=== PATIENT | female | born 1935 | race Caucasian/White ===

== ENCOUNTER 2017-03-03 19:57 | Observation (INO) | payer OTHER ==
[~2017-03-03] VITALS: Ht 162.6 cm; Wt 72.7 kg
[~2017-03-03 19:57] MED LIST: ALEVE220 M2 PO; ANTI-DEPRESSANT PO; ASPIRIN81 M2 PO; BUSPAR10 MG PO; BUSPAR5 MG PO; CLONIDINE HCL0.1 MG PO; DURAGESIC25 MCG TD; EFFEXOR XR37.5 MG PO; EFFEXOR75 MG PO; LEXAPRO10 MG PO; LIDOCAINE700 MG TD; LYRICA50 MG PO; METOPROLOL TART25 MG PO; MOBIC7.5 MG PO; MOTRIN600 MG PO; NABUMETONE500 MG PO; OMEPRAZOLE40 M1 PO; OXYCODONE5 MG PO; PERCOCET 5/31 TABLET PO; PRESERVISION T1 EACH PO; PROAIR HFA8.5 GM IH; SPIRIVA RESPIMAT4 GM IH; THEO-DUR,THEOC200 MG PO; TRAMADOL HCL50 MG PO; TRAZODONE HCL100 MG PO; TRAZODONE HCL300 MG PO; TYLENOL REGULA325 MG PO; VALIUM5 MG PO; VITAMIN A A1 CAPSULE PO
[2017-03-03] MEDS ORDERED: CLONAZEPAM0.5 MG PO (22:49)
[2017-03-03] MEDS ORDERED: TRAZODONE HCL50 MG PO (22:49)
[2017-03-03] MEDS ORDERED: ADVAIR 250/501 DISK IH (22:50)
[2017-03-03] MEDS ORDERED: NEURONTIN100 MG PO (22:50)
[2017-03-03 23:16] LABS: EOSINOPHIL (%) 2.5 % (0-5); EOSINOPHIL COUNT 0.3 K/uL (0-0.3); HEMATOCRIT 31.9 % (36.0-46.0); IMMATURE GRANULOCYTE (%) 1.3 % (0.0-0.7); IMMATURE GRANULOCYTE COUNT 0.1 K/uL; INSTRUMENT ABS NEUTROPHIL CT 7.3 K/uL; LYMPHOCYTE COUNT 1.8 K/uL (1.0-2.8); MCH 26.1 PG (29.0-34.0); MCHC 31.3 G/DL (30.0-36.0); MCV 83.3 FL (83-99); MEAN PLAT.VOLUME 9.1 uM^3 (9.5-12.4); MONOCYTE (%) 11.6 % (3-12); MONOCYTE COUNT 1.3 K/uL (0-0.8); NEUTROPHIL (%) 67.7 % (45-76); NEUTROPHIL COUNT 7.3 K/uL (1.8-6.4); PLATELET COUNT 317 K/uL (156-360); RBC DIS.WIDTH-CV 17.2 % (11.8-14.6); RED BLOOD COUNT 3.83 M/uL (3.80-5.20); WHITE BLOOD COUNT 10.8 K/uL (4.1-10.2)
[2017-03-03 23:25] LABS: CHLORIDE 107 mEq/L (99-109); SODIUM 143 mEq/L (136-147)
[2017-03-03 23:26] LABS: GLUCOSE 99 mg/dL (70-99)
[2017-03-03 23:28] LABS: ANION GAP 13 MEQ/L (2-14)
[2017-03-03 23:31] LABS: GFR ESTIMATE (CALCULATED) > 59 mL/min/; UREA NITROGEN (BUN) 16 mg/dL (9-23)
[2017-03-04 00:04] LABS: TROP-I INTERPRETATION NEGATIVE; TROPONIN-I < 0.01 ng/mL (0.0-0.30)
[2017-03-04 01:03] VITALS: BP 180/89
[2017-03-04 05:36] LABS: EOSINOPHIL (%) 2.2 % (0-5); EOSINOPHIL COUNT 0.3 K/uL (0-0.3); HEMATOCRIT 31.1 % (36.0-46.0); IMMATURE GRANULOCYTE (%) 1.1 % (0.0-0.7); IMMATURE GRANULOCYTE COUNT 0.1 K/uL; INSTRUMENT ABS NEUTROPHIL CT 9.4 K/uL; MCH 26.6 PG (29.0-34.0); MCHC 31.5 G/DL (30.0-36.0); MCV 84.5 FL (83-99); MEAN PLAT.VOLUME 9.6 uM^3 (9.5-12.4); MONOCYTE (%) 9.4 % (3-12); MONOCYTE COUNT 1.2 K/uL (0-0.8); NEUTROPHIL (%) 72.1 % (45-76); NEUTROPHIL COUNT 9.4 K/uL (1.8-6.4); PLATELET COUNT 331 K/uL (156-360); RBC DIS.WIDTH-CV 17.4 % (11.8-14.6); RBC DIS.WIDTH-SD 53.8 % (39-53); RED BLOOD COUNT 3.68 M/uL (3.80-5.20); WHITE BLOOD COUNT 13.1 K/uL (4.1-10.2)
[2017-03-04 05:54] VITALS: BP 151/67
[2017-03-04 06:05] LABS: ALKALINE PHOSPHATASE 70 IU/L (3-129); ANION GAP 10 MEQ/L (2-14); CHLORIDE 106 MEQ/L (99-109); DIRECT BILIRUBIN 0.1 mg/dL (0.0-0.3); GFR ESTIMATE (CALCULATED) > 59 mL/min/; GLUCOSE 101 mg/dL (70-99); POTASSIUM 3.8 MEQ/L (3.7-5.4); SAMPLE HEMOLYSIS CHECK 0; SAMPLE ICTERIC CHECK 0; SAMPLE LIPEMIA CHECK 0; SODIUM 142 MEQ/L (136-147); TOTAL BILIRUBIN 0.4 MG/DL (0.0-1.0); UREA NITROGEN (BUN) 18 mg/dL (9-23)
[2017-03-04 06:14] LABS: ADD MIUA? YES; BILIRUBIN NEGATIVE; BLOOD NEGATIVE; COLOR YELLOW ((YELLOW)); GLUCOSE (STRIP) NEGATIVE; KETONES NEGATIVE; LEUKOCYTES NEGATIVE; NITRITE NEGATIVE; PROTEIN (STRIP) NEGATIVE; SPECIFIC GRAVITY 1.016 (1.000-1.030); UROBILINOGEN 0.2 MG/DL (0.2-1.0)
[2017-03-04 06:40] LABS: BACTERIA RARE /HPF; EPITHELIAL CELLS 1+ /HPF; MUCUS TRACE /LPF; RED BLOOD CELLS 20-30 /HPF (0-5)
[2017-03-04 07:20] LABS: IRON 22 MCG/DL (35-150); THEOPHYLLINE 17.5 MCG/ML (10-20)
[2017-03-04 07:27] VITALS: BP 138/61
[2017-03-04 11:37] VITALS: BP 141/72
[2017-03-04 15:00] VITALS: BP 170/75
== END 2017-03-04 16:51 | disposition home health service (06) ==
LOC: EME 19:57 → 5WEST 22:38 → EDOF 22:38 → 5WEST 03-04 00:49
PROVIDERS: Hospitalist
PROC: 0HQ0XZZ Repair Scalp Skin, External Approach (ICD-10-PCS; principal; 2017-03-03)
DX: S01.01XA Laceration without foreign body of scalp, initial encounter (principal); S06.9X9A Unspecified intracranial injury with loss of consciousness of unspecified duration, initial encounter; W18.30XA Fall on same level, unspecified, initial encounter; Y92.000 Kitchen of unspecified non-institutional (private) residence as the place of occurrence of the external cause; R42 Dizziness and giddiness; F32.9 Major depressive disorder, single episode, unspecified; I10 Essential (primary) hypertension; K21.9 Gastro-esophageal reflux disease without esophagitis; Z79.82 Long term (current) use of aspirin; Z87.891 Personal history of nicotine dependence; F41.9 Anxiety disorder, unspecified; E78.5 Hyperlipidemia, unspecified; J44.9 Chronic obstructive pulmonary disease, unspecified; E66.9 Obesity, unspecified
CPT/HCPCS: 70450; 72125; 80048; 80076; 80198; 81003; 82272; 82607; 83540; 84443; 84466; 84484; 85025; 93005; 94640; 99202; 99281; 99284; G0378; G8987 GO CI; G8988 GO CH; G8989 GO CI; J2270; J7030

== ENCOUNTER 2017-04-30 10:10 | Emergency (ER) | payer OTHER ==
[~2017-04-30] VITALS: Ht 165.1 cm; Wt 72.2 kg
[~2017-04-30 10:10] MED LIST changes: +ADVAIR 250/501 DISK IH; +CLONAZEPAM0.5 MG PO; +NEURONTIN100 MG PO; +TRAZODONE HCL50 MG PO
[2017-04-30 13:32] VITALS: BP 155/72
== END 2017-04-30 13:32 | disposition home or self-care (01) ==
LOC: EME 10:10
PROC: 0HQGXZZ Repair Left Hand Skin, External Approach (ICD-10-PCS; principal; 2017-04-30)
DX: S61.217A Laceration without foreign body of left little finger without damage to nail, initial encounter (principal); W26.0XXA Contact with knife, initial encounter
CPT/HCPCS: 99281; 99283

== ENCOUNTER 2017-11-03 09:06 | Emergency (ER) | payer OTHER ==
[~2017-11-03] VITALS: Ht 165.1 cm; Wt 72.8 kg
[2017-11-03 09:42] LABS: BASOPHIL (%) 0.8 % (0-1); BASOPHIL COUNT 0.1 K/uL (0-0.1); EOSINOPHIL (%) 1.5 % (0-5); EOSINOPHIL COUNT 0.2 K/uL (0-0.3); HEMATOCRIT 42.9 % (36.0-46.0); HEMOGLOBIN 14.3 G/DL (11.9-15.5); IMMATURE GRANULOCYTE (%) 1.9 % (0.0-0.7); LYMPHOCYTE COUNT 1.5 K/uL (1.0-2.8); MCH 30.2 PG (29.0-34.0); MCHC 33.3 G/DL (30.0-36.0); MCV 90.5 FL (83-99); MONOCYTE (%) 9.4 % (3-12); MONOCYTE COUNT 1.1 K/uL (0-0.8); NEUTROPHIL (%) 73.4 % (45-76); NEUTROPHIL COUNT 8.3 K/uL (1.8-6.4); PLATELET COUNT 338 K/uL (156-360); RBC DIS.WIDTH-CV 17.2 % (11.8-14.6); RED BLOOD COUNT 4.74 M/uL (3.80-5.20); WHITE BLOOD COUNT 11.3 K/uL (4.1-10.2)
[2017-11-03 09:49] LABS: ALBUMIN 4.5 g/dL (3.2-4.8)
[2017-11-03 09:50] LABS: CHLORIDE 103 mEq/L (99-109); POTASSIUM 4.4 mEq/L (3.7-5.4); SODIUM 140 mEq/L (136-147)
[2017-11-03 09:52] LABS: GLUCOSE 112 mg/dL (70-99); TOTAL PROTEIN 7.6 g/dL (6.4-8.3)
[2017-11-03 09:54] LABS: TOTAL BILIRUBIN 0.6 mg/dL (0.0-1.0)
[2017-11-03 09:55] LABS: ALKALINE PHOSPHATASE 89 IU/L (3-129)
[2017-11-03 09:56] LABS: CREATININE 0.9 mg/dL (0.6-1.3); GFR ESTIMATE (CALCULATED) > 59 mL/min/
[2017-11-03 09:57] LABS: AST (GOT) 17 IU/L (2-34); UREA NITROGEN (BUN) 26 mg/dL (9-23)
[2017-11-03 09:58] LABS: ALT (GPT) 15 IU/L (3-49)
[2017-11-03 09:59] LABS: LIPASE 17 U/L (1.0-51.0)
[2017-11-03 12:28] LABS: APPEARANCE SL.HAZY ((CLEAR)); BILIRUBIN NEGATIVE; BLOOD NEGATIVE; COLOR YELLOW ((YELLOW)); GLUCOSE (STRIP) NEGATIVE; KETONES NEGATIVE; LEUKOCYTES NEGATIVE; NITRITE NEGATIVE; PROTEIN (STRIP) 30; SPECIFIC GRAVITY 1.021 (1.000-1.030); UROBILINOGEN 0.2 MG/DL (0.2-1.0)
[2017-11-03 12:34] LABS: BACTERIA RARE /HPF; EPITHELIAL CELLS 1+ /HPF; MUCUS TRACE /LPF; RED BLOOD CELLS 0-5 /HPF (0-5); WHITE BLOOD CELLS 0-5 /HPF (0-5)
[2017-11-03] MEDS ORDERED: BENTYL20 MG PO (14:22)
[2017-11-03] MEDS ORDERED: ZOFRAN4 MG PO (14:22)
[2017-11-03 14:49] VITALS: BP 149/97
== END 2017-11-03 14:55 | disposition home or self-care (01) ==
LOC: EME 09:06
PROVIDERS: Emergency Medicine
DX: R10.11 Right upper quadrant pain (principal); K57.30 Diverticulosis of large intestine without perforation or abscess without bleeding; Z87.442 Personal history of urinary calculi; I10 Essential (primary) hypertension; J45.909 Unspecified asthma, uncomplicated
CPT/HCPCS: 71045; 74177; 76705; 80053; 81003; 83690; 85025; 93005; 99281; 99285; J1885; J2270; J2405; J7030

== ENCOUNTER 2017-11-13 15:55 | Inpatient (IN) | payer OTHER ==
[~2017-11-13] VITALS: Ht 157.5 cm; Wt 74.6 kg
[~2017-11-13 15:55] MED LIST changes: +BENTYL20 MG PO; +CLONAZEPAM0.125 MG PO; -CLONAZEPAM0.5 MG PO; -VITAMIN A A1 CAPSULE PO; +VITAMIN A PO; +ZOFRAN4 MG PO; +[UNRECOGNIZED DRUG - OTHER] PO
[2017-11-13 18:06] LABS: HEMATOCRIT 40.7 % (36.0-46.0); HEMOGLOBIN 13.4 G/DL (11.9-15.5); MCH 30.4 PG (29.0-34.0); MCHC 32.9 G/DL (30.0-36.0); MCV 92.3 FL (83-99); PLATELET COUNT 301 K/uL (156-360); RBC DIS.WIDTH-CV 17.5 % (11.8-14.6); RBC DIS.WIDTH-SD 59.8 % (39-53); RED BLOOD COUNT 4.41 M/uL (3.80-5.20); WHITE BLOOD COUNT 13.7 K/uL (4.1-10.2)
[2017-11-13 18:19] LABS: ALBUMIN 4.4 g/dL (3.2-4.8); CHLORIDE 104 mEq/L (99-109); POTASSIUM 3.7 mEq/L (3.7-5.4); SODIUM 140 mEq/L (136-147)
[2017-11-13 18:22] LABS: GLUCOSE 89 mg/dL (70-99); TOTAL PROTEIN 7.1 g/dL (6.4-8.3)
[2017-11-13 18:23] LABS: TOTAL BILIRUBIN 0.3 mg/dL (0.0-1.0)
[2017-11-13 18:25] LABS: ALKALINE PHOSPHATASE 74 IU/L (3-129); CREATININE 0.8 mg/dL (0.6-1.3); GFR ESTIMATE (CALCULATED) > 59 mL/min/
[2017-11-13 18:26] LABS: UREA NITROGEN (BUN) 18 mg/dL (9-23)
[2017-11-13 18:27] LABS: AST (GOT) 16 IU/L (2-34)
[2017-11-13 18:28] LABS: ALT (GPT) 13 IU/L (3-49)
[2017-11-13 18:29] LABS: APPEARANCE CLEAR ((CLEAR)); BILIRUBIN NEGATIVE; BLOOD NEGATIVE; COLOR YELLOW ((YELLOW)); GLUCOSE (STRIP) NEGATIVE; KETONES 5; LEUKOCYTES NEGATIVE; NITRITE NEGATIVE; PROTEIN (STRIP) NEGATIVE; SPECIFIC GRAVITY 1.013 (1.000-1.030); UCUL ADDED? NO; UROBILINOGEN 0.2 MG/DL (0.2-1.0)
[2017-11-13 18:29] LABS: LIPASE 16 U/L (1.0-51.0)
[2017-11-13 18:32] LABS: INTER. NORMALIZED RATIO 1.1
[2017-11-13] MEDS ORDERED: ZYPREXA2.5 MG PO (19:03)
[2017-11-13] MEDS ORDERED: AMBIEN5 MG PO (19:03)
[2017-11-14] VITALS: BP 131/61
[2017-11-14 03:59] VITALS: BP 152/63
[2017-11-14 07:20] VITALS: BP 155/67
[2017-11-14 12:32] VITALS: BP 135/63
[2017-11-14 15:00] VITALS: BP 160/74
[2017-11-14 19:18] VITALS: BP 149/66
[2017-11-15 00:01] VITALS: BP 114/56
[2017-11-15 04:43] VITALS: BP 115/57
[2017-11-15 07:21] LABS: HEMATOCRIT 36.7 % (36.0-46.0); HEMOGLOBIN 11.8 G/DL (11.9-15.5); MCH 30.4 PG (29.0-34.0); MCHC 32.2 G/DL (30.0-36.0); MCV 94.6 FL (83-99); PLATELET COUNT 255 K/uL (156-360); RBC DIS.WIDTH-CV 17.7 % (11.8-14.6); RBC DIS.WIDTH-SD 61.4 % (39-53); RED BLOOD COUNT 3.88 M/uL (3.80-5.20); WHITE BLOOD COUNT 11.9 K/uL (4.1-10.2)
[2017-11-15 07:35] LABS: ALBUMIN 3.5 G/DL (3.2-4.8); ALKALINE PHOSPHATASE 49 IU/L (3-129); ALT (GPT) 11 IU/L (3-49); AST (GOT) 15 IU/L (2-34); CHLORIDE 108 MEQ/L (99-109); CREATININE 0.8 MG/DL (0.6-1.3); GFR ESTIMATE (CALCULATED) > 59 mL/min/; MAGNESIUM 2.4 mg/dl (1.3-2.7); PHOSPHORUS 2.7 mg/dL (2.5-4.9); POTASSIUM 4.3 MEQ/L (3.7-5.4); SODIUM 141 MEQ/L (136-147); TOTAL BILIRUBIN 0.3 MG/DL (0.0-1.0); TOTAL PROTEIN 5.4 G/DL (6.4-8.3); UREA NITROGEN (BUN) 9 mg/dL (9-23)
[2017-11-15 07:43] LABS: GLUCOSE 117 mg/dL (70-99)
[2017-11-15 07:50] VITALS: BP 130/58
[2017-11-15 11:43] VITALS: BP 154/69
[2017-11-15 15:00] VITALS: BP 131/60
[2017-11-15 23:28] VITALS: BP 146/70
[2017-11-16 13:52] VITALS: BP 154/67
[2017-11-16 16:15] VITALS: BP 156/98
[2017-11-16 20:03] VITALS: BP 158/72
[2017-11-16 23:38] VITALS: BP 144/68
[2017-11-17 03:49] VITALS: BP 143/61
[2017-11-17 06:06] LABS: HEMATOCRIT 35.9 % (36.0-46.0); HEMOGLOBIN 11.8 G/DL (11.9-15.5); MCHC 32.9 G/DL (30.0-36.0); MCV 91.3 FL (83-99); PLATELET COUNT 274 K/uL (156-360); RBC DIS.WIDTH-CV 17.1 % (11.8-14.6); RBC DIS.WIDTH-SD 57.2 % (39-53); RED BLOOD COUNT 3.93 M/uL (3.80-5.20); WHITE BLOOD COUNT 9.9 K/uL (4.1-10.2)
[2017-11-17 06:26] LABS: CHLORIDE 106 MEQ/L (99-109); CREATININE 0.7 MG/DL (0.6-1.3); GFR ESTIMATE (CALCULATED) > 59 mL/min/; GLUCOSE 97 mg/dL (70-99); MAGNESIUM 2.3 mg/dl (1.3-2.7); PHOSPHORUS 3.2 mg/dL (2.5-4.9); SODIUM 141 MEQ/L (136-147); UREA NITROGEN (BUN) 7 mg/dL (9-23)
[2017-11-17 07:49] VITALS: BP 131/60
[2017-11-17 11:33] VITALS: BP 159/67
[2017-11-17 17:53] VITALS: BP 166/72
[2017-11-17 19:27] VITALS: BP 150/80
[2017-11-17 23:26] VITALS: BP 152/65
[2017-11-18 03:45] VITALS: BP 119/58
[2017-11-18 08:37] VITALS: BP 148/73
[2017-11-18 08:49] LABS: HEMATOCRIT 37.4 % (36.0-46.0); HEMOGLOBIN 12.4 G/DL (11.9-15.5); MCH 30.5 PG (29.0-34.0); MCHC 33.2 G/DL (30.0-36.0); MCV 92.1 FL (83-99); PLATELET COUNT 313 K/uL (156-360); RBC DIS.WIDTH-CV 17.2 % (11.8-14.6); RED BLOOD COUNT 4.06 M/uL (3.80-5.20); WHITE BLOOD COUNT 19.3 K/uL (4.1-10.2)
[2017-11-18 09:21] LABS: ALBUMIN 4.2 G/DL (3.2-4.8); ALKALINE PHOSPHATASE 59 IU/L (3-129); CHLORIDE 103 MEQ/L (99-109); CREATININE 0.8 MG/DL (0.6-1.3); GFR ESTIMATE (CALCULATED) > 59 mL/min/; GLUCOSE 121 mg/dL (70-99); POTASSIUM 4.4 MEQ/L (3.7-5.4); SODIUM 138 MEQ/L (136-147); UREA NITROGEN (BUN) 8 mg/dL (9-23)
[2017-11-18 09:28] LABS: ALT (GPT) 85 IU/L (3-49); AST (GOT) 108 IU/L (2-34); TOTAL BILIRUBIN 0.4 MG/DL (0.0-1.0); TOTAL PROTEIN 6.7 G/DL (6.4-8.3)
[2017-11-18 11:37] VITALS: BP 171/77
[2017-11-18 16:17] VITALS: BP 136/69
[2017-11-18 19:40] VITALS: BP 158/70
[2017-11-18 22:45] VITALS: BP 153/67
[2017-11-19 04:02] VITALS: BP 163/72
[2017-11-19 07:45] VITALS: BP 157/72
[2017-11-19 11:33] VITALS: BP 193/85
[2017-11-19 19:30] VITALS: BP 143/79
[2017-11-19 23:25] VITALS: BP 101/52
[2017-11-20 03:20] VITALS: BP 149/67
[2017-11-20 06:34] LABS: HEMOGLOBIN 11.4 G/DL (11.9-15.5); MCH 30.1 PG (29.0-34.0); MCHC 32.6 G/DL (30.0-36.0); MCV 92.3 FL (83-99); PLATELET COUNT 279 K/uL (156-360); RBC DIS.WIDTH-CV 17.2 % (11.8-14.6); RBC DIS.WIDTH-SD 58.7 % (39-53); RED BLOOD COUNT 3.79 M/uL (3.80-5.20)
[2017-11-20 07:07] LABS: ALBUMIN 3.7 G/DL (3.2-4.8); ALKALINE PHOSPHATASE 62 IU/L (3-129); ALT (GPT) 72 IU/L (3-49); CHLORIDE 101 MEQ/L (99-109); CREATININE 0.7 MG/DL (0.6-1.3); GFR ESTIMATE (CALCULATED) > 59 mL/min/; GLUCOSE 132 mg/dL (70-99); PHOSPHORUS 2.9 mg/dL (2.5-4.9); POTASSIUM 4.3 MEQ/L (3.7-5.4); SODIUM 136 MEQ/L (136-147); TOTAL PROTEIN 5.9 G/DL (6.4-8.3); UREA NITROGEN (BUN) 7 mg/dL (9-23)
[2017-11-20 07:09] LABS: AST (GOT) 49 IU/L (2-34); TOTAL BILIRUBIN 0.5 MG/DL (0.0-1.0)
[2017-11-20 07:11] VITALS: BP 183/84
[2017-11-20 11:25] VITALS: BP 140/65
[2017-11-20 15:50] VITALS: BP 124/57
[2017-11-20 20:00] VITALS: BP 154/54
[2017-11-21] VITALS (7 sets, daily range): BP systolic 123–184; BP diastolic 60–82
[2017-11-21 06:53] LABS: HEMATOCRIT 34.5 % (36.0-46.0); HEMOGLOBIN 11.2 G/DL (11.9-15.5); MCH 30.4 PG (29.0-34.0); MCHC 32.5 G/DL (30.0-36.0); MCV 93.8 FL (83-99); PLATELET COUNT 295 K/uL (156-360); RBC DIS.WIDTH-CV 17.3 % (11.8-14.6); RBC DIS.WIDTH-SD 59.5 % (39-53); RED BLOOD COUNT 3.68 M/uL (3.80-5.20); WHITE BLOOD COUNT 13.6 K/uL (4.1-10.2)
[2017-11-21 07:29] LABS: ALBUMIN 3.2 G/DL (3.2-4.8); ALKALINE PHOSPHATASE 53 IU/L (3-129); ALT (GPT) 56 IU/L (3-49); AST (GOT) 40 IU/L (2-34); CHLORIDE 104 MEQ/L (99-109); CREATININE 0.8 MG/DL (0.6-1.3); GFR ESTIMATE (CALCULATED) > 59 mL/min/; POTASSIUM 4.3 MEQ/L (3.7-5.4); SODIUM 140 MEQ/L (136-147); TOTAL BILIRUBIN 0.5 MG/DL (0.0-1.0); TOTAL PROTEIN 5.3 G/DL (6.4-8.3); UREA NITROGEN (BUN) 10 mg/dL (9-23)
[2017-11-21 07:42] LABS: GLUCOSE 95 mg/dL (70-99)
[2017-11-21 09:31] LABS: THYROTROPIN (TSH) 3.6 MIU/L (0.4-5.5)
[2017-11-22 03:27] VITALS: BP 139/80
[2017-11-22 06:16] LABS: HEMATOCRIT 34.5 % (36.0-46.0); HEMOGLOBIN 11.3 G/DL (11.9-15.5); MCH 30.2 PG (29.0-34.0); MCHC 32.8 G/DL (30.0-36.0); MCV 92.2 FL (83-99); NRBC (%) 0.2 /100 WBC (0-0); PLATELET COUNT 312 K/uL (156-360); RBC DIS.WIDTH-CV 17.2 % (11.8-14.6); RBC DIS.WIDTH-SD 57.5 % (39-53); RED BLOOD COUNT 3.74 M/uL (3.80-5.20); WHITE BLOOD COUNT 10.7 K/uL (4.1-10.2)
[2017-11-22 06:38] LABS: CHLORIDE 106 MEQ/L (99-109); CREATININE 0.7 MG/DL (0.6-1.3); GFR ESTIMATE (CALCULATED) > 59 mL/min/; GLUCOSE 102 mg/dL (70-99); POTASSIUM 4.4 MEQ/L (3.7-5.4); SODIUM 143 MEQ/L (136-147); UREA NITROGEN (BUN) 6 mg/dL (9-23)
[2017-11-22 07:05] VITALS: BP 135/77
[2017-11-22 11:00] VITALS: BP 131/79
[2017-11-22 15:00] VITALS: BP 140/78
[2017-11-22 20:20] VITALS: BP 142/64
[2017-11-22 22:37] VITALS: BP 178/78
[2017-11-23 03:17] VITALS: BP 175/75
[2017-11-23 08:00] VITALS: BP 185/77
[2017-11-23 10:44] VITALS: BP 170/78
== END 2017-11-23 13:20 | disposition home or self-care (01) | DRG 326 ==
LOC: EME 15:55 → 5EAST 18:03 → EDOF 18:03 → 5EAST 18:03 → ENRESERV 18:06 → 5EAST 21:05
PROVIDERS: Physician Assistant Medical; Surgery
DX: K44.0 Diaphragmatic hernia with obstruction, without gangrene (principal); K56.2 Volvulus; R13.10 Dysphagia, unspecified; R33.9 Retention of urine, unspecified; E66.9 Obesity, unspecified; Z68.30 Body mass index [BMI] 30.0-30.9, adult; G89.29 Other chronic pain; K56.7 Ileus, unspecified; J45.909 Unspecified asthma, uncomplicated; Z90.710 Acquired absence of both cervix and uterus; I10 Essential (primary) hypertension; K21.9 Gastro-esophageal reflux disease without esophagitis; Z87.442 Personal history of urinary calculi; Z87.891 Personal history of nicotine dependence
CPT/HCPCS: 74018; 74241; 78226; 80048; 80053; 81003; 82948; 83605; 83690; 83735; 84100; 84443; 85027; 85610; 86850; 86900; 86901; 94799; 99202; 99281; 99285; A9510; E0700; G0378; G8978 GP CJ; G8979 GP CH; J0131; J0330; J1100; J1170; J1650; J1885; J2060; J2405; J2710; J2765; J2805; J3010; J7040; J7643; S0020; S0074